=== PATIENT | female | born 1950 | race Caucasian/White ===

== ENCOUNTER 2021-12-05 10:53 | Inpatient (IN) | payer MEDICARE, OTHER ==
[~2021-12-05] VITALS: Ht 165.1 cm; Wt 77.1 kg
--- NOTE | 2021-12-05 11:05 | NUR ---
received pt 70 yrs female came accompany by marnie c/o chest pain and radited on lt arm seen by DR. MENDOZA
--- NOTE | 2021-12-05 11:08 | NUR ---
COVID SWAB DONE AND SENT TO LAB
--- NOTE | 2021-12-05 11:13 | NUR ---
MOVE SHEET SUBMITTED.
--- NOTE | 2021-12-05 11:16 | NUR ---
BLOOD COLLECTED SENT TO LAB
[2021-12-05 11:23] LABS: BASOPHILS # (AUTO) 0.1 K/uL (0.0-0.2); BASOPHILS % (AUTO) 0.9 % (0.0-2.0); EOSINOPHILS % (AUTO) 3.6 % (0.0-6.0); HEMATOCRIT 44 % (33-45); HEMOGLOBIN 14.8 g/dL (11.5-14.8); LYMPHOCYTES # (AUTO) 2.6 K/uL (0.8-4.8); LYMPHOCYTES % (AUTO) 42.6 % (20.0-44.0); MEAN CORPUSCULAR HGB CONC 34 g/dl (31.0-36.0); MEAN CORPUSCULAR VOLUME 86 fL (82-100); MONOCYTES # (AUTO) 0.5 K/uL (0.1-1.30); MONOCYTES % (AUTO) 8.2 % (2.0-12.0); NEUTROPHILS # (AUTO) 2.7 K/uL (1.8-8.9); NEUTROPHILS % (AUTO) 44.7 % (43.0-81.0); PLATELET COUNT (AUTO) 197 K/uL (150-450); RED BLOOD CELL COUNT(AUTO) 5.04 MIL/uL (4.0-5.2)
[2021-12-05 11:32] LABS: CALCIUM, SERUM 9.4 mg/dL (8.5-10.1); CARBON DIOXIDE 32 mmol/L (21-32); CHLORIDE 103 mmol/L (98-107); CREATININE 0.8 mg/dL (0.6-1.3); GLUCOSE 190 mg/dL (74-106); POTASSIUM 4.7 mmol/L (3.5-5.1); SODIUM SERUM 140 mmol/L (136-145); UREA NITROGEN, BLOOD 19 mg/dL (7-18)
[2021-12-05 11:37] LABS: ALANINE AMINOTRANSFERASE 34 U/L (12-78); ALBUMIN 3.6 g/dL (3.4-5.0); ALKALINE PHOSPHATASE 54 U/L (46-116); ASPARTATE AMINOTRANSFERASE 16 U/L (15-37); BILIRUBIN,DIRECT 0.1 mg/dL (0.0-0.2); BILIRUBIN,TOTAL 0.4 mg/dL (0.2-1.0); TOTAL PROTEIN, SERUM 7.2 g/dL (6.4-8.2)
--- NOTE | 2021-12-05 11:49 | NUR ---
EPIC PANEL PAGED
[2021-12-05] MEDS ORDERED: NITROGLYCERIN PACKET 1 GM PACKET ONE (12:10)
[2021-12-05] MEDS: NITROGLYCERIN 0.4 MG/HR PATCH.TD24 TD SCH (12:23)
--- NOTE | 2021-12-05 12:54 | NUR ---
room 326-1
--- NOTE | 2021-12-05 13:04 | NUR ---
wating for room moniter bed
--- NOTE | 2021-12-05 13:05 | NUR ---
REPORT GIVEN TO SCOTT FOR DARRELL
--- NOTE | 2021-12-05 13:23 | NUR ---
[facility] SWAB SENT
--- NOTE | 2021-12-05 13:24 | NUR ---
TO ROOM 236-1 VS SABLE PT CONDITION NO CHEST PAIN SONE AT BED SIDE CONDITION UP DATE
[2021-12-05] MEDS ORDERED: NITROGLYCERIN 0.4 MG/TAB BOTTLE SL PRN (14:30)
[2021-12-05] MEDS ORDERED: Z GUARD REMEDY 4 OZ OINT TP PRN (14:30)
[2021-12-05] MEDS ORDERED: ASPIRIN 325 MG TABLET PO SCH (14:30)
[2021-12-05] MEDS ORDERED: ONDANSETRON HCL/PF 4 MG/2 ML VIAL IVP PRN (14:30)
--- NOTE | 2021-12-05 14:30 | NUR ---
ms rn received a new admission from er, 70 year old female, awake,alert, oriented x4,not in any form of distress, came in w/ chest pain, denies pain at this time, macedonian lauren, daughter at bedside, nsr on monitor, will monitor patient.
[2021-12-05 16:00] VITALS: BP 137/69
--- NOTE | 2021-12-05 18:44 | NUR ---
ms rn on bed, being seen by dr. rubin,all needs attended,
--- NOTE | 2021-12-05 19:59 | NUR ---
DISC INSPECTOR OPENING NOTES: RECEIVED PATIENT AWAKE IN BED, ACCOMPANIED BY FAMILY, BED IN LOW POSITION CALL LIGHTS WITHIN REACH, NO COMPLAIN OF PAIN AND DISCOMFORT AT THIS TIME, ON ROOM AIR SATURATING WELL, ON TELE MONITOR SR-95, WITH IV LINE AT RAC#20SL, PATIENT IS A/OX 3 SLOVENIAN SPEAKING ABLE TO MAKE NEEDS KNOWN, PATIENT KEPT CLEAN AND DRY ALL NEEDS MET WILL CONTINUE TO MONITOR,.
[2021-12-05 20:00] VITALS: BP 121/56
[2021-12-05] MEDS ORDERED: DEXTROSE 50%-WATER 50 ML DISP.SYRIN IV PRN (21:30)
[2021-12-05] MEDS: ATORVASTATIN 40 MG TABLET PO SCH (21:48)
[2021-12-05] MEDS: METOPROLOL TARTRATE 25 MG TABLET PO SCH (21:49)
[2021-12-05] MEDS: ACETAMINOPHEN 325 MG TABLET PO PRN (21:53)
[2021-12-05] MEDS ORDERED: MAGNESIUM HYDROXIDE 30 ML UDC PO PRN (22:00)
[2021-12-05] MEDS: *INSULIN REGULAR(HUMULIN R)HUM 100 UNIT/ML VIAL SQ PRN (22:36)
[2021-12-05] MEDS: BLOOD SUGAR DIAGNOSTIC 1 EACH STRIP VI SCH (22:36)
[2021-12-06] VITALS (8 sets, daily range): BP systolic 94–130; BP diastolic 44–76
[2021-12-06] MEDS: BLOOD SUGAR DIAGNOSTIC 1 EACH STRIP VI SCH ×4 (06:31→21:59)
--- NOTE | 2021-12-06 06:31 | NUR ---
RN NOTES: [id number] NO INSULIN GIVEN PATIENT ON NPO
[2021-12-06 06:36] LABS: BASOPHILS # (AUTO) 0.1 K/uL (0.0-0.2); BASOPHILS % (AUTO) 0.6 % (0.0-2.0); EOSINOPHILS % (AUTO) 3.2 % (0.0-6.0); HEMATOCRIT 41 % (33-45); HEMOGLOBIN 13.8 g/dL (11.5-14.8); LYMPHOCYTES # (AUTO) 2.5 K/uL (0.8-4.8); LYMPHOCYTES % (AUTO) 27.1 % (20.0-44.0); MEAN CORPUSCULAR HGB CONC 34 g/dl (31.0-36.0); MEAN CORPUSCULAR VOLUME 86 fL (82-100); MONOCYTES # (AUTO) 0.6 K/uL (0.1-1.30); MONOCYTES % (AUTO) 6.8 % (2.0-12.0); NEUTROPHILS # (AUTO) 5.7 K/uL (1.8-8.9); NEUTROPHILS % (AUTO) 62.3 % (43.0-81.0); PLATELET COUNT (AUTO) 194 K/uL (150-450); RED BLOOD CELL COUNT(AUTO) 4.73 MIL/uL (4.0-5.2); WHITE BLOOD COUNT (AUTO) 9.2 K/uL (4.3-11.0)
--- NOTE | 2021-12-06 07:02 | NUR ---
SLEEPING CAR CONDUCTOR CLOSING NOTES: PATIENT SLEEP IN BED COMFORTABLY, AROUSABLE TO VERBAL STIMULI, BED IN LOW POSITION, CALL LIGHTS WITHIN REACH, NO COMPLAIN OF PAIN AND DISCOMFORT AT THIS TIME, ON TELE MONITORING SR-85, ON ROOM AIR SATURATING WELL, ON NPO- FOR CT ANGIO TOMM, PATIENT KEPT CLEAN AND DRY ALL NEEDS MET ENDORSE TO INCOMING SHIFT.
--- NOTE | 2021-12-06 07:43 | NUR ---
LOG RAFT WORKER OPENING NOTE RECEIVED PATIENT AWAKE IN BED IN NO ACUTE SIGNS OF DISTRESS. A/OX3-4. ABLE TO MAKE NEEDS KNOWN, DENIES PAIN OR ANY DISCOMFORTS AT THIS TIME. ON RA, TOLERATING WELL, BREATHING EVEN AND UNLABORED. ON TELE-MONITOR WITH CURRENT READING OF NSR, HR 82, NO C/O CARDIAC DISTRESS VOICED AT THIS TIME. IV ACCESS ON RAC G #20, SL, INTACT AND PATENT. SAFETY MEASURES IN PLACED: BED LOCKED AND AT LOWEST POSITION, RAILS UP X2, CALL CHERRY WITHIN REACH. WILL CONTINUE TO MONITOR PATIENT.
[2021-12-06] MEDS: METFORMIN 500 MG TABLET PO SCH ×2 (08:00→17:07)
[2021-12-06 08:06] LABS: CALCIUM, SERUM 9.1 mg/dL (8.5-10.1); CREATININE 0.6 mg/dL (0.6-1.3); MAGNESIUM 1.6 mg/dL (1.8-2.4); PHOSPHORUS 4.3 mg/dL (2.5-4.9); POTASSIUM 4.2 mmol/L (3.5-5.1)
[2021-12-06] MEDS ORDERED: ERGO500093 PO (08:35)
[2021-12-06] MEDS ORDERED: CARV6.252 PO (08:35)
[2021-12-06] MEDS ORDERED: FENO145T21 PO (08:35)
[2021-12-06] MEDS ORDERED: INSU100I24 SQ (08:35)
[2021-12-06] MEDS ORDERED: ASPI-1420 PO (08:35)
[2021-12-06] MEDS ORDERED: DULA1.5P SQ (08:35)
[2021-12-06] MEDS ORDERED: CLOP75TA15 PO (08:35)
[2021-12-06] MEDS ORDERED: METF-442 PO (08:35)
[2021-12-06] MEDS ORDERED: LEVO50TA8 PO (08:35)
[2021-12-06] MEDS ORDERED: ATOR10TA PO (08:35)
[2021-12-06] MEDS ORDERED: ICOS1CAP PO (08:35)
[2021-12-06] MEDS ORDERED: EVOL140P3 SQ (08:52)
[2021-12-06] MEDS: METOPROLOL TARTRATE 25 MG TABLET PO SCH ×2 (09:24→21:07)
[2021-12-06] MEDS ORDERED: MAGNESIUM OXIDE 400 MG TABLET PO ONE (09:30)
[2021-12-06] MEDS ORDERED: IOHEXOL-350 100 ML VIAL IV ONE (11:19)
[2021-12-06] MEDS ORDERED: IV NS 0.9% 250 ML IV ONE (11:20)
[2021-12-06] MEDS ORDERED: METOPROLOL TARTRATE INJ 5 MG/5 ML AMPUL ONE ×3 (11:20→12:14)
[2021-12-06] MEDS ORDERED: NITROGLYCERIN 0.4 MG/TAB BOTTLE ONE (11:20)
[2021-12-06] MEDS ORDERED: CT SWABBABLE VALVE TRANS SET 1 EA INFUS.SET MC ONE (11:20)
--- NOTE | 2021-12-06 11:30 | NUR ---
RN NOTES PT PICKED-UP FOR CTCA BY IMPLEMENTATION LEAD KATHLEEN VIA WHEELCHAIR.
[2021-12-06] MEDS: METOPROLOL TARTRATE INJ 5 MG/5 ML AMPUL IVP PRN ×10 (11:55→12:40)
[2021-12-06] MEDS: NITROGLYCERIN 0.4 MG/HR PATCH.TD24 TD SCH (12:30)
--- NOTE | 2021-12-06 12:40 | NUR ---
PT RETURNED TO DEPARTMENT, NO S/S OF PAIN OR DISCOMFORT, BP:109/76, WILL CONTINUE TO MONITOR
[2021-12-06] MEDS ORDERED: NITROGLYCERIN 0.4 MG/TAB BOTTLE SL ONE (13:00)
--- NOTE | 2021-12-06 14:07 | NUR ---
RN NOTES CONFIRMED WITH MED CARE MANAGER EULALIO NEWTON HOW LONG TO HOLD PT'S METFORMIN AND HE SAID TO HOLD IT FOR 48HRS POST CTCA. WILL ENDORSE
[2021-12-06] MEDS ORDERED: ASPIRIN 325 MG TABLET PO SCH (14:30)
[2021-12-06] MEDS: ASPIRIN EC 81 MG TABLET.DR PO SCH (14:42)
[2021-12-06] MEDS ORDERED: CARVEDILOL 6.25 MG TABLET PO SCH (17:00)
[2021-12-06] MEDS: INSULIN REGULAR, HUMAN 100 UNIT/ML 3 ML VIAL SQ PRN (17:18)
[2021-12-06] MEDS ORDERED: ATORVASTATIN 10 MG TABLET PO SCH (18:00)
--- NOTE | 2021-12-06 18:19 | NUR ---
RN NOTES SPOKED TO PT'S DAUGHTER ROHITH AND APPARENTLY PT C/O TOLERABLE ABDOMINAL PAIN/DISCOMFORTS EVERY TIME SHE EATS. DAUGHTER REQUESTING IF MD CAN ORDER ABDOMINAL U/S FOR PT. DR MENDOSA MADE AWARE WITH ORDER TO DO U/S GALL BLADDER AND CHECK LFT'S IN AM.
--- NOTE | 2021-12-06 18:37 | NUR ---
PSYCHODRAMATIST OPENING NOTES PATIENT AWAKE AND RESTING COMFORTABLY IN BED. A/OX4. ABLE TO MAKE NEEDS KNOWN. ON RA, TOLERATING WELL, BREATHING EVEN AND UNLABORED, NO SOB NOTED DURING SHIFT.ON TELE-MONITOR WITH CURRENT READING OF NSR WITH FIRST DEGREE AV BLOCK, HR 87, NO COMPLAIN OF CARDIAC DISCOMFORT OR DISTRESS VOICED. IV SL'S ON RAC G #18 AND LAC #20 BOTH INTACT, PATENT AND FLUSHES WELL. ALL NEEDS AND CARE ATTENDED WELL. SAFETY MEASURES MAINTAINED: BED IN LOWEST LOCKED POSITION, SIDE-RAILS UP X2, CALL CHERRY WITHIN REACH AND BED ALARM ON. WILL ENDORSE DARRELL TO PERIOPERATIVE ASSISTANT NURSE.
--- NOTE | 2021-12-06 19:51 | NUR ---
SKATE MAKER OPENING NOTE RECEIVED PATIENT IN BED WITH HOB FLAT PATIENT LIKES IT. NO S/S OF APPARENT DISTRESS ON ARMAND AIR. NO C/O PAIN AT THIS TIME BUT C/O ABDOMINAL WHEN SHE EATS THAT STARTED ABOUT 10 DAYS AGO. TELE MONITOR READING SR WITH 85 BPM. RE-ORIENTED AND ENCOURAGED WITH THE USE OF CALL LIGHT. NO FLUIDS RUNNING AT THIS TIME. WILL CONTINUE WITH PLAN OF CARE FOR PATIENT.
[2021-12-06] MEDS: ATORVASTATIN 40 MG TABLET PO SCH (21:07)
[2021-12-06] MEDS: *INSULIN REGULAR(HUMULIN R)HUM 100 UNIT/ML VIAL SQ PRN (21:58)
[2021-12-06] MEDS: MORPHINE SULFATE INJ 2 MG/ML DISP.SYRIN IV PRN (22:04)
--- NOTE | 2021-12-06 22:05 | NUR ---
ANESTHESIOLOGY MEDICAL DOCTOR NOTE C/O 02/08 PAIN IN THE ABDOMEN -- MORE LIKE IN THE DIAPHRAGM AREA BUT PER PATIENT NOT THE HEART. GIVEN MORPHINE PRN WILL RE-ASSESS.
--- NOTE | 2021-12-06 22:15 | NUR ---
ORTHOPEDIC PHYSICAL THERAPIST NOTE PATIENT BLOOD SUGAR 271. PATIENT IN NPO STATUS STARTING TOMORROW FOR BREAKFAST BUT PER PATIENT SHE IS NOT GOING TO EAT ANYMORE TONIGHT AND HAS NOT BEEN EATING WELL BECAUSE OF HER STOMACH PAIN. HELD INSULIN FOR NOW PER, UNKNOWN TILL WHEN PATIENT GOING T BE NPO.
[2021-12-07] VITALS: BP 131/58
[2021-12-07 04:00] VITALS: BP 123/58
[2021-12-07] MEDS: MORPHINE SULFATE INJ 2 MG/ML DISP.SYRIN IV PRN (04:21)
--- NOTE | 2021-12-07 04:30 | NUR ---
DIE SET UP WORKER NOTE REFUSED 0400 AM V/S. PER PATIENT "DON'T BOTHER ME!" Addendum: 12/07/21 at 0530 by LARISA AGUIRRE RN DISREGARD.
[2021-12-07] MEDS: BLOOD SUGAR DIAGNOSTIC 1 EACH STRIP VI SCH ×4 (06:30→21:53)
[2021-12-07] MEDS: INSULIN REGULAR, HUMAN 100 UNIT/ML 3 ML VIAL SQ PRN (06:30)
[2021-12-07 07:01] LABS: ALBUMIN 3.2 g/dL (3.4-5.0); BILIRUBIN,DIRECT 0.1 mg/dL (0.0-0.2); BILIRUBIN,TOTAL 0.5 mg/dL (0.2-1.0); MAGNESIUM 1.5 mg/dL (1.8-2.4); TOTAL PROTEIN, SERUM 6.7 g/dL (6.4-8.2)
[2021-12-07] MEDS: LEVOTHYROXINE SODIUM 50 MCG TABLET PO SCH (07:30)
--- NOTE | 2021-12-07 07:30 | NUR ---
PETROLEUM ANALYST OPENING NOTES RECEIVED PATIENT IN BED, AWAKE SITTING UP AT EDGE OF THE BED. A/O X4. LATVIAN SPEAKING. REMAINS NPO STATUS. NO S/SX OF APPARENT DISTRESS ON RA. NO C/O PAIN AT THIS TIME. TELE MONITOR READING SR 83 BPM AT THIS TIME. SAFETY PRECAUTIONS IN PLACE. CALL LIGHT WITHIN REACH. WILL CONTINUE PLAN OF CARE
--- NOTE | 2021-12-07 07:31 | NUR ---
WAYBILL CLERK NOTE NEEDS ATTENDED. GAVE REPORT TO COSME FOR CONTINUITY OF CARE.
[2021-12-07 08:00] VITALS: BP 92/61
[2021-12-07] MEDS: METFORMIN 500 MG TABLET PO SCH ×2 (08:00→17:57)
--- NOTE | 2021-12-07 08:00 | NUR ---
RN NOTES HOLDING METFORMIN MEDICATION THIS AM. PATIENT UNDERWENT CTCA 12/06/21.
--- NOTE | 2021-12-07 08:30 | NUR ---
RN NOTES PATIENT REFUSING AM MEDICATIONS. C/O UPSET STOMACH AND DOES NOT WANT TO TAKE MEDICATIONS ON EMPTY STOMACH. WILL NOTIFY MD AND CONTINUE TO MONITOR PATIENT.
[2021-12-07] MEDS: FENOFIBRATE NANOCRYS (145 MG) 145 MG TABLET PO SCH (09:00)
[2021-12-07] MEDS: ASPIRIN EC 81 MG TABLET.DR PO SCH (09:00)
[2021-12-07] MEDS: METOPROLOL TARTRATE 25 MG TABLET PO SCH ×3 (09:00→21:53)
[2021-12-07] MEDS: Magnesium 1GM/D5W 100ML PREMIX 100 ML IV SCH ×2 (11:04→12:23)
[2021-12-07] MEDS: NITROGLYCERIN 0.4 MG/HR PATCH.TD24 TD SCH (13:29)
[2021-12-07] MEDS: ACETAMINOPHEN 325 MG TABLET PO PRN (15:57)
--- NOTE | 2021-12-07 17:57 | NUR ---
RN NOTES METFORMIN NOT ADMINISTERED D/T CTCA PERFORMED YESTERDAY, 12/06/21. ORDER TO HOLD METFORMIN FOR 48 HOURS POST PROCEDURE.
--- NOTE | 2021-12-07 18:53 | NUR ---
RN NOTES PATIENT RESTING IN BED, AWAKE AT THIS TIME WITH AT BEDSIDE. NO COMPLAINTS VERBALIZED. SEEN BY DR JULES. DR JULES RECOMMENDED PCI TO BE DONE POSSIBLY THIS SUNDAY. PATIENT FAMILY MEMBERS WERE NOTIFIED OF PLAN OF CARE. PATIENT COMPLAINS OF ABDOMINAL PAIN AFTER EATING. MAINTAINING NPO STATUS FOR NOW BUT TOLERATING WATER/LIQUID. NEW IV ACCESS AT L HAND G#22, INTACT AND PATENT. SAFETY PRECAUTIONS IN PLACE. ALL ORDERS CARRIED OUT AND NEEDS MET. WILL ENDORSE TO FERTILIZING MACHINE OPERATOR NURSE FOR DARRELL
--- NOTE | 2021-12-07 19:30 | NUR ---
RN OPENING NOTE PATIENT IN BED, AWAKE, SON AT BEDSIDE. PATIENT IS A/O X 4 JAPANESE SPEAKING. PATIENT IS SR 95 BPM, NO SOB OR CHEST PAIN AT THIS TIME. PATIENT IS ON RA, TOLERATING WELL. PATIENT HAS A L HAND 22 G PATENT AND INTACT. PATIENT DOES NOT COMPLAIN OF ABD PAIN AT THIS TIME, BUT STATES SHE CAN FEEL SOMETHING THERE. SAFETY MEASURES IN PLACE: BED LOCKED AND IN LOWEST POSITION, CALL LIGHT WITHIN REACH, SIDE RAILS UP. WILL MONITOR PATIENT CLOSELY.
[2021-12-07 20:00] VITALS: BP 114/59
[2021-12-07] MEDS: ATORVASTATIN 40 MG TABLET PO SCH (21:53)
[2021-12-07] MEDS: *INSULIN REGULAR(HUMULIN R)HUM 100 UNIT/ML VIAL SQ PRN (21:56)
[2021-12-08] VITALS: BP 109/58
[2021-12-08 04:00] VITALS: BP 129/66
[2021-12-08] MEDS: INSULIN REGULAR, HUMAN 100 UNIT/ML 3 ML VIAL SQ PRN ×3 (06:27→17:33)
[2021-12-08] MEDS: BLOOD SUGAR DIAGNOSTIC 1 EACH STRIP VI SCH ×4 (06:31→21:19)
--- NOTE | 2021-12-08 06:58 | NUR ---
RN CLOSING NOTE PATIENT IN BED, AWAKE, PATIENT IS A/O X 4 DIVEHI SPEAKING. BUT ABLE TO UNDERSTAND SOME TAJIK. PATIENT IS SR 88 BPM, NO SOB OR CHEST PAIN AT THIS TIME. PATIENT IS ON RA, TOLERATING WELL. PATIENT HAS A L HAND 22 G PATENT AND INTACT. PATIENT DID NOT COMPLAIN OF ANY ABD PAIN, TOLERATED LIQUIDS. PATIENT GIVEN MOM PATIENT COMPLAINING THAT SHE HAS NOT HAD A BOWEL MOVEMENT FOR 3 DAYS. SAFETY MEASURES IN PLACE: BED LOCKED AND IN LOWEST POSITION, CALL LIGHT WITHIN REACH, SIDE RAILS UP. ALL NEEDS MET AND ATTENDED. ALL ORDERS CARRIED OUT. WILL ENDORSE TO DAY SHIFT NURSE FOR DARRELL.
--- NOTE | 2021-12-08 07:42 | NUR ---
RN OPENING NOTE PATIENT AWAKE IN BED RESTING, A/O X4. NO S/S OF PAIN NOTED AT THIS TIME. ON ROOM AIR, NO DISTRESS OR SHORTNESS OF BREATH NOTED. IV ACCESS L HAND #22G, INTACT, PATENT AND FLUSHING WELL. PATIENT WITH EXTERNAL BUSINESS LAW PROFESSOR WITH CURRENT READING OF A-FIB AND HR OF 82, NO CARDIAC DISTRESS NOTED. FALL AND SAFETY MEASURES IN PLACE, BED ALARM ON BED IN LOW AND LOCK POSITION, CALL LIGHT AND TABLE WITHIN EASY REACH, SIDE RAILS UP X2. WILL CONTINUE TO MONITOR. Addendum: 12/08/21 at 0754 by Kiana Leon RN DISREGARD ABOVE CARDIAC READING PATIENT WITH EXTERNAL BUSINESS LAW PROFESSOR WITH CURRENT READING OF SR AND HR OF 84, NO CARDIAC DISTRESS NOTED.
[2021-12-08 08:00] VITALS: BP 140/68
[2021-12-08] MEDS: FENOFIBRATE NANOCRYS (145 MG) 145 MG TABLET PO SCH (08:07)
[2021-12-08] MEDS: METOPROLOL TARTRATE 25 MG TABLET PO SCH ×2 (08:07→21:14)
[2021-12-08] MEDS: ASPIRIN EC 81 MG TABLET.DR PO SCH (08:07)
[2021-12-08] MEDS: LEVOTHYROXINE SODIUM 50 MCG TABLET PO SCH (08:08)
[2021-12-08] MEDS: METFORMIN 500 MG TABLET PO SCH ×2 (08:08→17:34)
[2021-12-08] MEDS ORDERED: CLOPIDOGREL BISULFATE 75 MG TABLET PO SCH (09:00)
[2021-12-08] MEDS ORDERED: ASPIRIN EC 81 MG TABLET.DR PO SCH (09:00)
[2021-12-08] MEDS: NITROGLYCERIN 0.4 MG/HR PATCH.TD24 TD SCH (12:08)
[2021-12-08 16:30] VITALS: BP 109/69
--- NOTE | 2021-12-08 18:31 | NUR ---
RN CLOSING NOTE PATIENT AWAKE IN BED RESTING, A/O X4. NO S/S OF PAIN NOTED AT THIS TIME. ON ROOM AIR, NO DISTRESS OR SHORTNESS OF BREATH NOTED. IV ACCESS L HAND #22G, INTACT, PATENT AND FLUSHING WELL. PATIENT WITH EXTERNAL DIAMOND ASSORTER WITH CURRENT READING OF ST AND HR OF 105, NO CARDIAC DISTRESS NOTED. ALL SCHEDULE MEDICATIONS ADMINISTERED. FALL AND SAFETY MEASURES IN PLACE, BED ALARM ON BED IN LOW AND LOCK POSITION, CALL LIGHT AND TABLE WITHIN EASY REACH, SIDE RAILS UP X2. WILL ENDORSE TO DEMAND PLANNER.
--- NOTE | 2021-12-08 19:35 | NUR ---
RN NOTES RECEIVED PATIENT AWAKE ON BED, A/OX4, AMBULATORY, DSR ON TELE MONITOR HR-93, DENIES PAIN, NO SOB, CALL LIGHT WITHIN REACH, [id number], WILL CONTINUE TO MONITOR
[2021-12-08 20:00] VITALS: BP 117/56
[2021-12-08] MEDS: ATORVASTATIN 40 MG TABLET PO SCH (21:14)
[2021-12-08] MEDS: *INSULIN REGULAR(HUMULIN R)HUM 100 UNIT/ML VIAL SQ PRN (21:22)
[2021-12-09] VITALS: BP 128/68
[2021-12-09 04:00] VITALS: BP 132/76
[2021-12-09 06:01] LABS: ALBUMIN 3.2 g/dL (3.4-5.0); BILIRUBIN,TOTAL 0.4 mg/dL (0.2-1.0); CALCIUM, SERUM 8.9 mg/dL (8.5-10.1); CREATININE 0.7 mg/dL (0.6-1.3); POTASSIUM 4.3 mmol/L (3.5-5.1); TOTAL PROTEIN, SERUM 6.6 g/dL (6.4-8.2)
--- NOTE | 2021-12-09 06:13 | NUR ---
RN NOTES BLOOD SUGAR 231- NO COVERAGE GIVEN, PT IS NPO FOR CARDIAC CATH
--- NOTE | 2021-12-09 06:34 | NUR ---
RN NOTES SLEEPING BUT AROUSABLE, DENIES PAIN, NO SOB, MORNING CARE RENDERED, CALL LIGHT WITHIN REACH, [id number], PT. NEEDS ATTENDED
--- NOTE | 2021-12-09 07:20 | NUR ---
RN NOTES PATIENT RESTING IN BED, ABLE TO BE AWAKENED. AMBULATES W/ STEADY GAIT TO THE BATHROOM. CURRENTLY NPO FOR CARDIAC CATH PROCEDURE. SAFETY MEASURES IN PLACE.
[2021-12-09] MEDS: LEVOTHYROXINE SODIUM 50 MCG TABLET PO SCH (07:30)
[2021-12-09] MEDS: BLOOD SUGAR DIAGNOSTIC 1 EACH STRIP VI SCH ×4 (07:42→21:30)
[2021-12-09] MEDS: METFORMIN 500 MG TABLET PO SCH ×2 (08:00→17:11)
--- NOTE | 2021-12-09 08:20 | NUR ---
RN NOTES PATIENT SEEN BY DR. MENDOSA.
[2021-12-09] MEDS: MAG HYDROX/AL HYDROX/SIMETH 30 ML UDC PO PRN (08:40)
[2021-12-09] MEDS: METOPROLOL TARTRATE 25 MG TABLET PO SCH ×2 (09:00→21:13)
[2021-12-09] MEDS: ASPIRIN EC 81 MG TABLET.DR PO SCH ×2 (09:00→13:15)
[2021-12-09] MEDS: FENOFIBRATE NANOCRYS (145 MG) 145 MG TABLET PO SCH (09:00)
[2021-12-09] MEDS ORDERED: IODIXANOL 150 ML IV ONE (10:33)
[2021-12-09] MEDS ORDERED: NITROGLYCERIN IN 5 % DEXTROSE 250 ML IV ONE (10:35)
--- NOTE | 2021-12-09 10:36 | NUR ---
RN NOTES SPOKE W/ ARPI FROM CONSTRUCTION FLAGGER; WILL FICTION AND NONFICTION PROSE WRITER PATIENT IN 5-10MINS FOR HEART CATH PROCEDURE.
[2021-12-09] MEDS ORDERED: LIDOCAINE 1% INJ 50 ML MDV IJ ONE (10:40)
--- NOTE | 2021-12-09 10:58 | NUR ---
RN NOTES PATIENT PICKED UP FOR CARDIAC CATH PROCEDURE VIA GURNEY, ACCOMPANIED BY 2 NURSES.
[2021-12-09] MEDS ORDERED: FENTANYL PF 100MCG/2ML AMPUL ONE (11:23)
[2021-12-09] MEDS ORDERED: MIDAZOLAM HCL 2 MG/2ML VIAL ONE (11:23)
--- NOTE | 2021-12-09 12:37 | NUR ---
RN NOTES PATIENT RETURNED FROM CARDIAC CATH PROCEDURE VIA GURNEY; BEDSIDE REPORT RECEIVED FROM GUNNAR, CLAM SORTER RN. POST-OP ORDERS NOTED.
--- NOTE | 2021-12-09 12:43 | NUR ---
RN NOTES FEMORAL/GROIN ACCESS SITE W/ DRESSING C/D/I; PATIENT CURRENTLY FLAT IN BED.
--- NOTE | 2021-12-09 12:44 | NUR ---
RN NOTES D/C PLAVIX PER DR. JULES; OK TO GIVE ASPIRIN NOW PER .
--- NOTE | 2021-12-09 15:01 | NUR ---
RN NOTES CURRENTLY SUPINE IN BED, NO COMPLAINT OF PAIN AT THIS TIME. FAMILY AT BEDSIDE W/ PATIENT.
[2021-12-09] MEDS: NITROGLYCERIN 0.4 MG/HR PATCH.TD24 TD SCH (16:41)
[2021-12-09] MEDS: INSULIN REGULAR, HUMAN 100 UNIT/ML 3 ML VIAL SQ PRN (17:20)
--- NOTE | 2021-12-09 18:43 | NUR ---
RN NOTES PATIENT SEEN BY DR. NICHOLAS TODAY; FOR PLANNED TRANSFER TO OUTSIDE HOSPITAL FOR SURGERY.
--- NOTE | 2021-12-09 18:48 | NUR ---
RN NOTES NO BLEEDING NOTED ON GROIN/FEMORAL ACCESS SITE. DRESSING C/D/I. REMAINS SUPINE IN BED. NOT IN ACUTE DISTRESS. SAFETY MEASURES MAINTAINED.
--- NOTE | 2021-12-09 19:12 | NUR ---
RN NOTES GRAIN MILL WORKER AT BEDSIDE FOR CAROTID DUPLEX.
--- NOTE | 2021-12-09 19:54 | NUR ---
RN OPENING NOTE PATIENT RECEIVED IN BED AA/O X4.ON ROOM AIR JACE WELL NO SIGN SOB/DISTRESS NOTED. IV ACCESS L HAND #22G, INTACT, PATENT AND FLUSHING WELL. PATIENT WITH EXTERNAL POLICE CAPTAIN PRECINCT WITH CURRENT READING OF ST AND HR OF 105, NO CARDIAC DISTRESS NOTED.FALL AND SAFETY MEASURES IN PLACE, BED ALARM ON BED IN LOW AND LOCK POSITION, CALL LIGHT AND TABLE WITHIN EASY REACH, SIDE RAILS UP X2. WILL CONTINUE TO MONITOR.
[2021-12-09 20:00] VITALS: BP 133/68
[2021-12-09] MEDS: ATORVASTATIN 40 MG TABLET PO SCH (21:10)
[2021-12-09] MEDS: *INSULIN REGULAR(HUMULIN R)HUM 100 UNIT/ML VIAL SQ PRN (21:26)
[2021-12-10] VITALS: BP 134/72
[2021-12-10 04:00] VITALS: BP 128/77
[2021-12-10] MEDS: INSULIN REGULAR, HUMAN 100 UNIT/ML 3 ML VIAL SQ PRN ×3 (05:51→16:58)
[2021-12-10] MEDS: BLOOD SUGAR DIAGNOSTIC 1 EACH STRIP VI SCH ×4 (05:56→22:05)
--- NOTE | 2021-12-10 06:37 | NUR ---
RN CLOSING NOTE PATIENT IN BED AA/O X4.ON ROOM AIR JACE WELL NO SIGN SOB/DISTRESS NOTED. IV ACCESS L HAND #22G, INTACT, PATENT AND FLUSHING WELL. PATIENT WITH EXTERNAL WELDER PRODUCTION LINE GAS WITH CURRENT READING OF SR 88HR. .ALL NEEDS ATTENDED. SAFETY MEASURES IN PLACE, BED ALARM ON BED IN LOW AND LOCK POSITION, CALL LIGHT AND TABLE WITHIN EASY REACH, SIDE RAILS UP X2. WILL ENDORSED TO NEXT SHIT.
--- NOTE | 2021-12-10 07:23 | NUR ---
RN OPENING NOTE RECEIVED PATIENT RESTING IN BED, A/O X4. STABLE ON ROOM AIR, NO SOB, BREATHING EVEN AND UNLABORED. NO SIGNS OF ACUTE DISTRESS NOTED. IV ACCESS L HAND #22G, INTACT, PATENT AND FLUSHING WELL. PATIENT ON EXTERNAL LANDFILL GAS COLLECTION OPERATOR WITH CURRENT READING OF SR, HR @86, NO CARDIAC DISTRESS NOTED. SAFETY MEASURES IN PLACE, BED ALARM ON, BED IN LOWEST AND LOCK POSITION, CALL LIGHT AND TABLE WITHIN EASY REACH, SIDE RAILS UP X2. WILL CONTINUE TO MONITOR.
[2021-12-10 08:00] VITALS: BP 109/49
[2021-12-10] MEDS: ASPIRIN EC 81 MG TABLET.DR PO SCH (08:18)
[2021-12-10] MEDS: FENOFIBRATE NANOCRYS (145 MG) 145 MG TABLET PO SCH (08:18)
[2021-12-10] MEDS: LEVOTHYROXINE SODIUM 50 MCG TABLET PO SCH (08:18)
[2021-12-10] MEDS: METFORMIN 500 MG TABLET PO SCH ×2 (08:18→17:01)
[2021-12-10] MEDS: METOPROLOL TARTRATE 25 MG TABLET PO SCH ×3 (08:19→21:34)
[2021-12-10] MEDS: MAG HYDROX/AL HYDROX/SIMETH 30 ML UDC PO PRN (10:14)
[2021-12-10 12:00] VITALS: BP 133/64
[2021-12-10] MEDS: NITROGLYCERIN 0.4 MG/HR PATCH.TD24 TD SCH (13:28)
[2021-12-10 16:00] VITALS: BP 115/60
--- NOTE | 2021-12-10 18:53 | NUR ---
RN CLOSING NOTES PATIENT IN BED, AWAKE, A/O X4. STABLE ON ROOM AIR, NO SOB, BREATHING EVEN AND UNLABORED. NO SIGNS OF ACUTE DISTRESS NOTED. IV ACCESS L HAND #22G, INTACT, PATENT AND FLUSHING WELL, SALINE LOCKED. PATIENT ON EXTERNAL CORPORATE SALES TRAINER WITH CURRENT READING OF SR, HR @86, NO CARDIAC DISTRESS NOTED. SAFETY MEASURES IN PLACE, BED ALARM ON, BED IN LOWEST AND LOCK POSITION, CALL LIGHT AND TABLE WITHIN EASY REACH, SIDE RAILS UP X2. WILL ENDORSE TO NEXT SHIFT FOR DARRELL.
--- NOTE | 2021-12-10 19:30 | NUR ---
KNITTING MACHINE OPERATOR HELPER NOTES RECEIVED IN ROOM,AMBULATORY,BREATHING REGULAR,NOT IN ANY FORM OF DISTRESS.DENIES SOB,O2 SAT 98% ON ROOM AIR,SALINE LOCK LEFT HAND INTACT AND PATENT .CALL LIGHT IN REACH,NEEDS ANTICIPATED.
[2021-12-10 20:00] VITALS: BP 113/66
--- NOTE | 2021-12-10 21:26 | NUR ---
ENVIRONMENTAL EDUCATOR NOTE REPORT RECEIVED FROM [facility] FOR CONTINUITY OF CARE.
[2021-12-10] MEDS: ATORVASTATIN 40 MG TABLET PO SCH (21:29)
[2021-12-10] MEDS: *INSULIN REGULAR(HUMULIN R)HUM 100 UNIT/ML VIAL SQ PRN (22:12)
[2021-12-11] VITALS: BP 102/54
[2021-12-11] MEDS: MAG HYDROX/AL HYDROX/SIMETH 30 ML UDC PO PRN (03:39)
[2021-12-11 04:53] VITALS: BP 147/90
[2021-12-11] MEDS: MORPHINE SULFATE INJ 2 MG/ML DISP.SYRIN IV PRN ×2 (05:25→18:54)
--- NOTE | 2021-12-11 05:30 | NUR ---
LIME SUPERVISOR NOTE PATIENT REQUEST FOR MORPHINE C/O SEVERE PAIN IN ABDOMEN UNRELIEVED BY GILBERT. DANIELLA ORDERED. WILL RE-ASSESS.
[2021-12-11] MEDS: BLOOD SUGAR DIAGNOSTIC 1 EACH STRIP VI SCH ×4 (06:33→21:47)
[2021-12-11] MEDS: INSULIN REGULAR, HUMAN 100 UNIT/ML 3 ML VIAL SQ PRN ×3 (06:35→18:12)
--- NOTE | 2021-12-11 07:12 | NUR ---
MOTORS ASSEMBLER CLOSING NOTE PATIENT IN BED WITH EYES CLOSED, EASY TO AROUSE. NO S/S OF APPARENT DISTRESS IN ROOM AIR. PAIN MANAGED WITH MEDICATION. NO FLUIDS RUNNING AT THIS TIME. NEEDS ATTENDED. ALL SCHEDULED MEDICATION ADMINISTERED. TELE MONITOR READING NSR THROUGHOUT SHIFT WITH 96 BPM THIS AM. WILL ENDORSE TO MORNING SHIFT RN FOR CONTINUITY OF CARE.
[2021-12-11] MEDS: LEVOTHYROXINE SODIUM 50 MCG TABLET PO SCH (07:30)
[2021-12-11] MEDS: METFORMIN 500 MG TABLET PO SCH ×2 (07:30→17:12)
--- NOTE | 2021-12-11 07:30 | NUR ---
OUTSIDE LABORER OPENING NOTE RECEIVED PATIENT RESTING IN BED, A/O X4. STABLE ON ROOM AIR, NO SOB, BREATHING EVEN AND UNLABORED. NO SIGNS OF ACUTE DISTRESS NOTED. IV ACCESS L HAND #22G, INTACT, PATENT AND FLUSHING WELL. PATIENT ON EXTERNAL MANAGER INTERNET WITH CURRENT READING OF SR. NO CARDIAC DISTRESS NOTED. SAFETY MEASURES IN PLACE, BED ALARM ON, BED IN LOWEST AND LOCK POSITION, CALL LIGHT AND TABLE WITHIN EASY REACH, SIDE RAILS UP X2. WILL CONTINUE TO MONITOR.
[2021-12-11 08:00] VITALS: BP 105/59
[2021-12-11] MEDS: METOPROLOL TARTRATE 25 MG TABLET PO SCH ×2 (08:42→21:21)
[2021-12-11] MEDS: FENOFIBRATE NANOCRYS (145 MG) 145 MG TABLET PO SCH (08:42)
[2021-12-11] MEDS: ASPIRIN EC 81 MG TABLET.DR PO SCH (08:42)
[2021-12-11] MEDS: NITROGLYCERIN 0.4 MG/HR PATCH.TD24 TD SCH (13:49)
[2021-12-11 16:00] VITALS: BP 158/79
--- NOTE | 2021-12-11 18:49 | NUR ---
STRADDLE CARRIER OPERATOR CLOSING NOTE PATIENT RESTING IN BED, A/O X4. STABLE ON ROOM AIR, NO SOB, BREATHING EVEN AND UNLABORED. NO SIGNS OF ACUTE DISTRESS NOTED. IV ACCESS L HAND #22G, INTACT, PATENT AND FLUSHING WELL. PATIENT ON EXTERNAL JEWELER APPRENTICE WITH CURRENT READING OF SR. NO CARDIAC DISTRESS NOTED. SAFETY MEASURES IN PLACE, BED ALARM ON, BED IN LOWEST AND LOCK POSITION, CALL LIGHT AND TABLE WITHIN EASY REACH, SIDE RAILS UP X2. ALL DUE MEDS GIVEN ORDERED. WILL ENDORSE FOR DARRELL.
--- NOTE | 2021-12-11 19:43 | NUR ---
MS RN NOTE RECEIVED PATIENT IN BED, NON-VERBAL. NO S/S OF APPARENT DISTRESS ON 2LPM OF O2 VIA NC. NOT EXHIBITING PAIN VIA FLACC. PATIENT IS CONTRACTED X4 EXTREMITIES. NG-TUBE NOTED IN L. NARE IN AT 60 CM-- AWAITING PLACEMENT VERIFICATION. HANSON CATH NOTED IN PLACE DRAINING DARK URINE. L. FA IV ACCESS RUNNING NS @75MLS/HR. BILATERAL MITTENS IN PLACE. SAFETY IN PLACE. WILL CONTINUE WITH PATIENT'S PLAN OF CARE. Addendum: 12/11/21 at 1944 by LARISA AGUIRRE RN DISREGARD
--- NOTE | 2021-12-11 19:44 | NUR ---
SWATCH PASTER OPENING NOTE RECEIVED PATIENT IN BED, A/OX4. 1 FAMILY MEMBER AT BEDSIDE. NO S/S OF APPARENT DISTRESS ON ROOM AIR. NO C/O PAIN AT THIS TIME. TELE MONITOR READING NSR WITH 97 BPM. NO IV FLUIDS RUNNING AT THIS TIME. RE-ORIENTED AND ENCOURAGED WITH THE USE OF CALL LIGHT. WILL CONTINUE WITH PATIENT'S PLAN OF CARE.
[2021-12-11 20:12] VITALS: BP 120/53
[2021-12-11] MEDS: ATORVASTATIN 40 MG TABLET PO SCH (21:22)
[2021-12-11] MEDS: *INSULIN REGULAR(HUMULIN R)HUM 100 UNIT/ML VIAL SQ PRN (21:50)
[2021-12-11 23:45] VITALS: BP 127/67
[2021-12-12 05:18] VITALS: BP 122/68
[2021-12-12] MEDS: BLOOD SUGAR DIAGNOSTIC 1 EACH STRIP VI SCH ×2 (06:30→12:06)
[2021-12-12] MEDS: INSULIN REGULAR, HUMAN 100 UNIT/ML 3 ML VIAL SQ PRN ×2 (06:32→12:08)
[2021-12-12] MEDS: MORPHINE SULFATE INJ 2 MG/ML DISP.SYRIN IV PRN (06:45)
[2021-12-12] MEDS: LEVOTHYROXINE SODIUM 50 MCG TABLET PO SCH (06:46)
--- NOTE | 2021-12-12 06:50 | NUR ---
DIRECTOR OF FLIGHT OPERATIONS NOTE PATIENT REQUEST FOR MORPHINE. C/O 03/11 STERNAL PAIN. WILL RE-ASSESS.
--- NOTE | 2021-12-12 06:55 | NUR ---
RESIDENTIAL GREEN BUILDING DESIGNER CLOSING NOTE PATIENT IN BED WITH EYES CLOSED, EASY TO AROUSE. NO S/S OF APPARENT DISTRESS IN ROOM AIR. PATIENT IS AMBULATORY WITH STEADY GAIT. PAIN MANAGED WITH MEDICATION. NO FLUIDS RUNNING AT THIS TIME. NEEDS ATTENDED. ALL SCHEDULED MEDICATION ADMINISTERED. TELE MONITOR READING NSR THROUGHOUT SHIFT WITH 83 BPM THIS AM. WILL ENDORSE TO MORNING SHIFT RN FOR CONTINUITY OF CARE.
--- NOTE | 2021-12-12 07:49 | NUR ---
RN OPENING NOTE PATIENT AWAKE IN BED RESTING, A/O X4. NO S/S OF PAIN NOTED AT THIS TIME. ON ROOM AIR, NO DISTRESS OR SHORTNESS OF BREATH NOTED. IV ACCESS L HAND #22G, INTACT, PATENT AND FLUSHING WELL. PATIENT WITH EXTERNAL PUBLIC ADDRESS SERVICER WITH CURRENT READING OF SR AND HR OF 83, NO CARDIAC DISTRESS NOTED. FALL AND SAFETY MEASURES IN PLACE, BED ALARM ON BED IN LOW AND LOCK POSITION, CALL LIGHT AND TABLE WITHIN EASY REACH, SIDE RAILS UP X2. WILL CONTINUE TO MONITOR.
[2021-12-12] MEDS: METFORMIN 500 MG TABLET PO SCH (09:08)
[2021-12-12] MEDS: METOPROLOL TARTRATE 25 MG TABLET PO SCH (09:08)
[2021-12-12] MEDS: ASPIRIN EC 81 MG TABLET.DR PO SCH (09:08)
[2021-12-12] MEDS: FENOFIBRATE NANOCRYS (145 MG) 145 MG TABLET PO SCH (09:08)
[2021-12-12 13:12] VITALS: BP 108/51
[2021-12-12] MEDS: NITROGLYCERIN 0.4 MG/HR PATCH.TD24 TD SCH (13:12)
--- NOTE | 2021-12-12 17:10 | NUR ---
PARTS DEPARTMENT SUPERVISOR NOTE PATIENT WAS DISCHARGE IN MEDICAL STABLE CONDITION. A/O X4. V/S TAKEN, STABLE AND RECORDED. PATIENT LEFT WITH IV L HAND, PATIENT WAS TRANSFER TO [facility], ROOM 626 FOR CORONARY ARTERY BYPASS SURGERY, DOCTOR MOHAN. SKIN ASSESSMENT DONE, SKIN INTACT. NAME ARM BAND REMOVED. ALL BELONGINGS CHECKED AND SIGNED. HEALTH TEACHING AND DISCHARGE INSTRUCTIONS GIVEN TO PATIENT, PATIENT'S FAMILY AND PARAMEDICS. PATIENT GLUCOSE WAS CHECKED BEFORE PATIENT LEFT UNIT, GLUCOSE WAS 265, INSULIN COVERAGE NOT GIVEN BECAUSE PATIENT DID NOT EAT, ADVICE PATIENT TO RECHECKED GLUCOSE AND ENDORSE TO PARAMEDICS TO INFORMED NURSE TO RECHECK GLUCOSE ONCE ARRIVE TO [facility]. MULTIPLE ATTEMPTS WERE DONE TO GIVE REPORT TO [facility] AT NUMBER [phone], WHEN THEY ANSWERED THEY SAID TO CALL IN 15 MINUTES, CALLED BACK AND THEY SAID TO CALL BACK AGAIN BECAUSE NURSE WAS ON BREAK, THIRD ATTEMPT NO ANSWER. PATIENT LEFT UNIT VIA GURNEY WITH NO SIGNS OF DISTRESS, ACCOMPANIED BY PARAMEDICS. CHARGE NURSE AWARE OF DISCHARGE.
== END 2021-12-12 17:10 | disposition short-term general hospital (02) | DRG 287 ==
LOC: ER 10:58 → TELE 13:17
PROVIDERS: ADMIT Internal Medicine; ATTEND Internal Medicine
PROC: 4A023N7 Measurement of Cardiac Sampling and Pressure, Left Heart, Percutaneous Approach (ICD-10-PCS; principal; 2021-12-09)
PROC: B211YZZ Fluoroscopy of Multiple Coronary Arteries using Other Contrast (ICD-10-PCS; 2021-12-09)
DX: I25.110 Atherosclerotic heart disease of native coronary artery with unstable angina pectoris (principal); E11.9 Type 2 diabetes mellitus without complications; Z20.822 Contact with and (suspected) exposure to COVID-19; I10 Essential (primary) hypertension; F17.200 Nicotine dependence, unspecified, uncomplicated; E78.5 Hyperlipidemia, unspecified
CPT/HCPCS: 36415; 71045-TC; 75574; 76705-TC; 80048-TC; 80053-TC; 80076-TC; 82962-TC; 83735-TC; 84100-TC; 84484-TC; 85025-TC; 85610-TC; 85730-TC; 87081-TC; 93307-TC; 93880-TC; C1887; C1894; C9803; G0378; G0500; J1644; J1815; J2250; J2270; J3010; J3475; J3490; J7040; J7050; Q9967